=== PATIENT | male | born 1990 | race Caucasian/White ===

== ENCOUNTER 2017-10-25 22:50 | Emergency (ER) | payer OTHER ==
[~2017-10-25] VITALS: Ht 175.3 cm; Wt 98.5 kg
--- NOTE | 2017-10-25 23:17 | PHYS DOC ---
Adult General Chief Complaint Chief Complaint: ALCOHOL INTOXICATION HPI HPI Patient is a 26-year-old gentleman who came into the ER today by EMS secondary to alcohol intoxication. Per patient's report he had approximately 8-15 shots of tequila at [employer] as well as eating multiple rounds of hot and spicy [place]. Patient reports he had an episode of emesis of his friend' s car. Patient is currently without any complaints and is requesting to be discharged home. Patient has any fevers shakes chills nausea vomiting diarrhea chest pain shortness breath cough cold rhinorrhea. Patient reports he has no history of hypertension diabetes lung liver or kidney pals. Patient reports he does drink on weekends heavily. Review of systems: Constitutional: Denies fever or chills Eyes: Denies change in visual acuity, redness, or eye pain HENT: Denies nasal congestion or sore throat All other review systems are negative except as documented in the history of present illness portion. Physical exam: Constitutional: Well developed, well nourished, no acute distress, non-toxic appearance. HENT: Normocephalic, atraumatic, bilateral external ears normal, nose normal. Eyes: EOMI, conjunctiva normal, no discharge. Neck: Normal range of motion, no tenderness, supple, no stridor. Cardiovascular:Heart rate regular rhythm Lungs & Thorax: Bilateral breath sounds clear to auscultation no respiratory distress Abdomen: Bowel sounds normal, soft, no tenderness, no masses, no pulsatile masses. Skin: Warm, dry, no erythema, no rash. Back: No tenderness, no CVA tenderness. Extremities: No tenderness, no cyanosis, no clubbing, ROM intact, no edema. Neurologic: Alert and oriented X 3, normal motor function, normal sensory function, no focal deficits noted. Psychologic: Affect normal, judgement normal, mood normal. Assessment and plan This is a 26-year-old pleasantly intoxicated gentleman who presents here today secondary to intoxication [employer] drugs. Patient is currently clinically and hemodynamically stable. Patient's vital signs are all within normal limits. Patient's alert awake and oriented 3 pleasant and interactive. Patient does have some slight slurring of speech which is consistent with alcohol intoxication. Patient has requested that he call family so that he go home and sleep off his intoxication. Patient's family did arrive and they are speaking to him and they feel very comfortable with the plan to take him home. They have no concerns at this time and they do not think that he needs any further ER evaluation. Shared decision making with the patient and his family agreed to discharge him home under their supervision. Precautions were reviewed with the family including the need to make sure he is monitored throughout the night for episodes of emesis or alteration in his mentation. Patient denies any drug use. Family concurs with this statement. Allergies Allergies Allergies Coded Allergies Type Severity Reaction Last Updated Verified No Known Drug Allergies 10/25/17 No EKG EKG [] Radiology/Procedures Radiology/Procedures [] Course & Med Decision Making Course & Med Decision Making Pertinent Labs and Imaging studies reviewed. (See chart for details) [] Dragon Disclaimer Dragon Disclaimer This electronic medical record was generated, in whole or in part, using a voice recognition dictation system. Departure Departure: Impression: Primary Impression: Alcohol intoxication Disposition: HOME, SELF-CARE Condition: STABLE Patient Instructions: Alcohol Intoxication MARKIE BHAT MD Oct 25, 2017 23:17
[2017-10-25 23:20] VITALS: BP 134/76
== END 2017-10-25 23:25 | disposition home or self-care (01) ==
LOC: ER 22:50
DX: F10.129 Alcohol abuse with intoxication, unspecified (principal)
CPT/HCPCS: 99283